=== PATIENT | male | born 1965 | race Caucasian/White ===

== ENCOUNTER 2020-02-25 11:51 | Inpatient (IN) ==
[2020-02-25] MEDS ORDERED: 0.9 % Sodium Chloride 1,000 ML IV ONE (12:11)
[2020-02-25 12:51] LABS: Basophils # 0.1 K/mcL (0.0-0.2); Basophils % 0.2 %; Hematocrit 41.9 % (37.5-50.1); Immature Granulocytes % 1.3 % (0-4); Lymphocytes % 4.2 %; Mean Corpuscular HGB Conc 33.4 g/dL (31.6-35.5); Mean Corpuscular Hemoglobin 28.9 pg (28.0-33.3); Mean Corpuscular Volume 86.4 fL (83.0-100.0); Mean Platelet Volume 9.8 fL (9.4-12.4); Monocytes # 1.1 K/mcL (0.0-1.3); Monocytes % 4.5 %; Neutrophils # 21.7 K/mcL (1.6-8.9); Platelet Count 392 K/mcL (140-400); Red Blood Count 4.85 M/mcL (4.19-5.50); Red Cell Distribution Width 13.4 % (11.5-14.5); Segmented Neutrophils % 89.8 %; White Blood Count 24.2 K/mcL (4.3-11.1)
[2020-02-25 12:52] LABS: Platelet Estimate Normal (Normal)
[2020-02-25] MEDS ORDERED: Isovue-370 500 ML BOTTLE IVP ONE ×2 (13:01→13:14)
[2020-02-25 13:10] LABS: Alanine Aminotransferase 112 Units/L (7-52); Albumin 3.3 g/dL (3.5-5.7); Albumin/Globulin Ratio 0.9 (1.1-2.2); Alkaline Phosphatase 231 Units/L (34-104); Aspartate Amino Transferase 159 Units/L (13-39); BUN/Creatinine Ratio 19 (6-26); Blood Urea Nitrogen 17 mg/dL (6-20); Calcium 8.4 mg/dL (8.6-10.3); Carbon Dioxide 30 mEq/L (23-29); Chloride 86 mEq/L (98-107); Globulin 3.8 g/dL (2.4-3.5); Glucose 152 mg/dL (70-105); Lipase 38 Units/L (11-82); Osmolality,Calculated 271 (280-300); Sodium 128 mEq/L (136-145); Total Protein 7.1 g/dL (6.4-8.9); eGFR For African Americans > 60 (> 60); eGFR For Non-African Americans > 60 (> 60)
[2020-02-25 13:27] LABS: Bilirubin,Urine Small (Negative); Blood,Urine Negative (Negative); Clarity,Urine Clear (Clear); Color,Urine Yellow (Yellow); Glucose,Urine (UA) >=1000 mg/dL (Normal); Ketones,Urine 15 mg/dL (Negative); Leukocyte Esterase,Urine Negative (Negative); Nitrite,Urine Negative (Negative); PH,Urine 6.5 pH Units (5.0-8.0); Protein,Urine Negative (Neg-Trace); Specific Gravity,Urine 1.018 (1.010-1.025); Urobilinogen,Urine Normal (Normal)
[2020-02-25] MEDS ORDERED: Metoclopramide 10 MG/2 ML VIAL IVP ONE (13:42)
[2020-02-25] MEDS ORDERED: *HR* Heparin 5,000 UNIT/ML VIAL IVP PRN (15:54)
[2020-02-25] MEDS ORDERED: *HR* Heparin 5,000 UNIT/ML VIAL IVP ONE (15:54)
[2020-02-25] MEDS ORDERED: Piperacillin/Tazobactam 3.375 GM in Water for inj. (sterile) 20 ML IVP ONE (16:04)
[2020-02-25] MEDS: Heparin 25,000 UNIT/250 ML D5W 25,000 UNIT/250 ML IV.SOLN IVC SCH (16:26)
[2020-02-25 16:55] LABS: Hematocrit 40.8 % (37.5-50.1); Hemoglobin 13.2 g/dL (12.9-16.9); Mean Corpuscular HGB Conc 32.4 g/dL (31.6-35.5); Mean Corpuscular Hemoglobin 28.4 pg (28.0-33.3); Mean Corpuscular Volume 87.9 fL (83.0-100.0); Mean Platelet Volume 9.9 fL (9.4-12.4); Platelet Count 375 K/mcL (140-400); Red Blood Count 4.64 M/mcL (4.19-5.50); Red Cell Distribution Width 13.5 % (11.5-14.5); White Blood Count 19.2 K/mcL (4.3-11.1)
[2020-02-25] MEDS ORDERED: Gadolinium Contrast Agent (WT Based) IV PRN (17:41)
[2020-02-25 17:49] LABS: Heparin anti-factor XA UFH < 0.04 IU/mL (0.30-0.70); INR 1.3
[2020-02-25 17:50] LABS: Prothrombin Time 14.5 Seconds (9.4-12.1)
[2020-02-25] MEDS ORDERED: *HR* Promethazine 25 MG/ML VIAL IVP PRN (18:30)
[2020-02-25] MEDS ORDERED: Promethazine 25 MG in 0.9 % Sodium Chloride 50 ML IVPB PRN (18:41)
[2020-02-25 20:21] LABS: Hepatitis B Core IgM Nonreactive (Nonreactive)
[2020-02-25 20:22] LABS: Hepatitis C Virus Antibody Nonreactive (Nonreactive)
[2020-02-25 20:24] LABS: Hepatitis A Antibody IgM Nonreactive (Nonreactive)
[2020-02-25] MEDS ORDERED: *HR* OxyCODONE Immed Rel 5 MG TABLET PO PRN (21:27)
[2020-02-25] MEDS: Piperacillin/Tazobactam 3.375 GM in 0.9 % Sodium Chloride Mini Bag 100 ML IVPB SCH (23:37)
[2020-02-26] MEDS: Heparin 25,000 UNIT/250 ML D5W 25,000 UNIT/250 ML IV.SOLN IVC SCH ×4 (00:43→22:28)
[2020-02-26] MEDS: *HR* Heparin 5,000 UNIT/ML VIAL IVP PRN ×2 (00:45→14:22)
[2020-02-26 01:37] LABS: Basophils % 0.2 %; Eosinophils % 0.1 %; Hematocrit 37.7 % (37.5-50.1); Hemoglobin 12.4 g/dL (12.9-16.9); Immature Granulocytes % 0.8 % (0-4); Lymphocytes % 5.4 %; Mean Corpuscular HGB Conc 32.9 g/dL (31.6-35.5); Mean Corpuscular Hemoglobin 28.9 pg (28.0-33.3); Mean Corpuscular Volume 87.9 fL (83.0-100.0); Mean Platelet Volume 10.1 fL (9.4-12.4); Monocytes % 5.5 %; Neutrophils # 15.5 K/mcL (1.6-8.9); Platelet Count 387 K/mcL (140-400); Red Blood Count 4.29 M/mcL (4.19-5.50); Red Cell Distribution Width 13.7 % (11.5-14.5); White Blood Count 17.7 K/mcL (4.3-11.1)
[2020-02-26 01:49] LABS: BUN/Creatinine Ratio 21 (6-26); Blood Urea Nitrogen 15 mg/dL (6-20); Calcium 7.5 mg/dL (8.6-10.3); Carbon Dioxide 28 mEq/L (23-29); Chloride 92 mEq/L (98-107); Glucose 100 mg/dL (70-105); Osmolality,Calculated 271 (280-300); Potassium 3.4 mEq/L (3.5-5.1); Sodium 130 mEq/L (136-145); eGFR For African Americans > 60 (> 60); eGFR For Non-African Americans > 60 (> 60)
[2020-02-26 03:07] LABS: Hepatitis B Surface Antigen Nonreactive (Nonreactive)
[2020-02-26] MEDS ORDERED: Ibuprofen 800 MG TABLET PO ONE (04:02)
[2020-02-26] MEDS ORDERED: Isovue-370 500 ML BOTTLE IVP ONE (07:19)
[2020-02-26] MEDS: polyethylene glycoL 3350 17 GM POWD.PACK PO SCH ×2 (07:41→20:09)
[2020-02-26] MEDS: Piperacillin/Tazobactam 3.375 GM in 0.9 % Sodium Chloride Mini Bag 100 ML IVPB SCH ×3 (07:41→23:34)
[2020-02-26 08:59] LABS: Basophils % 0.2 %; Hemoglobin 12.8 g/dL (12.9-16.9); Immature Granulocytes % 0.9 % (0-4); Lymphocytes # 1.1 K/mcL (0.6-4.6); Lymphocytes % 6.2 %; Mean Corpuscular HGB Conc 32.8 g/dL (31.6-35.5); Mean Corpuscular Hemoglobin 28.8 pg (28.0-33.3); Mean Corpuscular Volume 87.8 fL (83.0-100.0); Mean Platelet Volume 9.6 fL (9.4-12.4); Monocytes # 0.6 K/mcL (0.0-1.3); Monocytes % 3.4 %; Neutrophils # 15.1 K/mcL (1.6-8.9); Platelet Count 362 K/mcL (140-400); Red Blood Count 4.44 M/mcL (4.19-5.50); Red Cell Distribution Width 13.6 % (11.5-14.5); Segmented Neutrophils % 89.3 %; White Blood Count 16.9 K/mcL (4.3-11.1)
[2020-02-26 09:17] LABS: Alanine Aminotransferase 124 Units/L (7-52); Albumin 2.8 g/dL (3.5-5.7); Albumin/Globulin Ratio 0.7 (1.1-2.2); Alkaline Phosphatase 242 Units/L (34-104); Aspartate Amino Transferase 175 Units/L (13-39); BUN/Creatinine Ratio 23 (6-26); Bilirubin,Total 0.9 mg/dL (0.3-1.0); Blood Urea Nitrogen 17 mg/dL (6-20); Calcium 7.7 mg/dL (8.6-10.3); Carbon Dioxide 28 mEq/L (23-29); Chloride 93 mEq/L (98-107); Globulin 3.8 g/dL (2.4-3.5); Glucose 165 mg/dL (70-105); Osmolality,Calculated 275 (280-300); Potassium 3.6 mEq/L (3.5-5.1); Sodium 130 mEq/L (136-145); Total Protein 6.6 g/dL (6.4-8.9); eGFR For African Americans > 60 (> 60); eGFR For Non-African Americans > 60 (> 60)
[2020-02-26] MEDS ORDERED: Dextrose Gel 15 GM/37.5 ML TUBE PO PRN ×2 (11:43)
[2020-02-26] MEDS ORDERED: D5% in Water 1,000 ML IVC PRN (11:43)
[2020-02-26] MEDS ORDERED: *HR* Dextrose 50 % in Water (Syg) 50 ML SYRINGE IVP PRN (11:43)
[2020-02-26] MEDS: Insulin LISPRO 300 UNITS/3 ML VIAL SQ SCH ×4 (12:06→20:11)
[2020-02-26] MEDS ORDERED: 0.9 % Sodium Chloride 1,000 ML IVC ONE (12:35)
[2020-02-26 13:45] LABS: Estimated Average Glucose 197 mg/dl
[2020-02-26 15:12] LABS: Acinetobacter baumannii by PCR Not Detected (Not Detect); Candida albicans by PCR Not Detected (Not Detect); Candida glabrata by PCR Not Detected (Not Detect); Candida krusei by PCR Not Detected (Not Detect); Candida parapsilosis by PCR Not Detected (Not Detect); Candida tropicalis by PCR Not Detected (Not Detect); Enterobacter cloacae Cmplx PCR Not Detected (Not Detect); Enterobacteriaceae by PCR Not Detected (Not Detect); Enterococcus by PCR Not Detected (Not Detect); Escherichia coli by PCR Not Detected (Not Detect); Klebsiella oxytoca by PCR Not Detected (Not Detect); Klebsiella pneumoniae by PCR Not Detected (Not Detect); Proteus by PCR Not Detected (Not Detect); Pseudomonas aeruginosa by PCR Not Detected (Not Detect); Serratia marcescens by PCR Not Detected (Not Detect); Staphylococcus aureus by PCR Not Detected (Not Detect); Staphylococcus by PCR Not Detected (Not Detect); Streptococcus agalactiae(B)PCR Not Detected (Not Detect); Streptococcus by PCR Not Detected (Not Detect); Streptococcus pneumoniae PCR Not Detected (Not Detect); Streptococcus pyogenes (A) PCR Not Detected (Not Detect)
[2020-02-26] MEDS ORDERED: Vancomycin 1,750 MG/517.5 ML IV.SOLN IVPB SCH (16:00)
[2020-02-26] MEDS: Vancomycin 1,750 MG/517.5 ML IV.SOLN IVPB SCH (17:05)
[2020-02-26] MEDS: *HR* Promethazine 25 MG/ML VIAL IVP PRN (17:25)
[2020-02-26] MEDS: Ibuprofen 600 MG TABLET PO PRN (17:25)
[2020-02-27 03:10] LABS: Hematocrit 37.8 % (37.5-50.1); Hemoglobin 12.1 g/dL (12.9-16.9); Mean Corpuscular Hemoglobin 29.2 pg (28.0-33.3); Mean Corpuscular Volume 91.1 fL (83.0-100.0); Mean Platelet Volume 9.8 fL (9.4-12.4); Platelet Count 355 K/mcL (140-400); Red Blood Count 4.15 M/mcL (4.19-5.50); Red Cell Distribution Width 13.8 % (11.5-14.5); White Blood Count 12.9 K/mcL (4.3-11.1)
[2020-02-27 03:24] LABS: Albumin 2.8 g/dL (3.5-5.7); Albumin/Globulin Ratio 0.8 (1.1-2.2); BUN/Creatinine Ratio 19 (6-26); Bilirubin,Direct 0.3 mg/dL (0.0-0.2); Bilirubin,Indirect 0.4 mg/dL (0.0-1.0); Bilirubin,Total 0.7 mg/dL (0.3-1.0); Blood Urea Nitrogen 14 mg/dL (6-20); Calcium 7.8 mg/dL (8.6-10.3); Carbon Dioxide 31 mEq/L (23-29); Chloride 97 mEq/L (98-107); Globulin 3.4 g/dL (2.4-3.5); Glucose 153 mg/dL (70-105); Magnesium 2.5 mg/dL (1.6-2.6); Osmolality,Calculated 286 (280-300); Potassium 3.4 mEq/L (3.5-5.1); Sodium 136 mEq/L (136-145); Total Protein 6.2 g/dL (6.4-8.9); eGFR For African Americans > 60 (> 60); eGFR For Non-African Americans > 60 (> 60)
[2020-02-27] MEDS: Heparin 25,000 UNIT/250 ML D5W 25,000 UNIT/250 ML IV.SOLN IVC SCH ×3 (03:33→23:12)
[2020-02-27] MEDS: Ibuprofen 600 MG TABLET PO PRN ×2 (04:14→19:16)
[2020-02-27] MEDS: Vancomycin 1,750 MG/517.5 ML IV.SOLN IVPB SCH ×2 (04:16→16:29)
[2020-02-27] MEDS: Insulin LISPRO 300 UNITS/3 ML VIAL SQ SCH ×4 (08:51→20:40)
[2020-02-27] MEDS: Piperacillin/Tazobactam 3.375 GM in 0.9 % Sodium Chloride Mini Bag 100 ML IVPB SCH ×3 (08:52→23:13)
[2020-02-27] MEDS: polyethylene glycoL 3350 17 GM POWD.PACK PO SCH ×2 (08:53→20:38)
[2020-02-27] MEDS: *HR* Promethazine 25 MG/ML VIAL IVP PRN (11:33)
[2020-02-27] MEDS: Losartan/HCTZ 50-12.5 TABLET PO SCH (18:13)
[2020-02-28 02:28] LABS: Basophils % 0.2 %; Eosinophils % 0.2 %; Hematocrit 33.8 % (37.5-50.1); Hemoglobin 10.7 g/dL (12.9-16.9); Immature Granulocytes % 0.8 % (0-4); Lymphocytes # 1.1 K/mcL (0.6-4.6); Lymphocytes % 9.4 %; Mean Corpuscular HGB Conc 31.7 g/dL (31.6-35.5); Mean Corpuscular Hemoglobin 28.5 pg (28.0-33.3); Mean Corpuscular Volume 89.9 fL (83.0-100.0); Mean Platelet Volume 9.8 fL (9.4-12.4); Monocytes # 0.7 K/mcL (0.0-1.3); Monocytes % 5.8 %; Neutrophils # 9.9 K/mcL (1.6-8.9); Platelet Count 334 K/mcL (140-400); Red Blood Count 3.76 M/mcL (4.19-5.50); Red Cell Distribution Width 13.6 % (11.5-14.5); Segmented Neutrophils % 83.6 %; White Blood Count 11.8 K/mcL (4.3-11.1)
[2020-02-28 02:47] LABS: Alanine Aminotransferase 171 Units/L (7-52); Albumin 2.4 g/dL (3.5-5.7); Albumin/Globulin Ratio 0.7 (1.1-2.2); Alkaline Phosphatase 273 Units/L (34-104); Aspartate Amino Transferase 192 Units/L (13-39); BUN/Creatinine Ratio 12 (6-26); Bilirubin,Total 0.9 mg/dL (0.3-1.0); Blood Urea Nitrogen 9 mg/dL (6-20); C-Reactive Protein 176 mg/L (Less than 10); Calcium 7.5 mg/dL (8.6-10.3); Carbon Dioxide 29 mEq/L (23-29); Chloride 100 mEq/L (98-107); Globulin 3.5 g/dL (2.4-3.5); Glucose 194 mg/dL (70-105); Magnesium 2.4 mg/dL (1.6-2.6); Osmolality,Calculated 286 (280-300); Potassium 3.5 mEq/L (3.5-5.1); Sodium 136 mEq/L (136-145); Total Protein 5.9 g/dL (6.4-8.9); eGFR For African Americans > 60 (> 60); eGFR For Non-African Americans > 60 (> 60)
[2020-02-28] MEDS: Vancomycin 1,750 MG/517.5 ML IV.SOLN IVPB SCH ×3 (04:25→23:36)
[2020-02-28] MEDS: *HR* Heparin 5,000 UNIT/ML VIAL IVP PRN (04:26)
[2020-02-28] MEDS: Insulin LISPRO 300 UNITS/3 ML VIAL SQ SCH ×4 (08:58→20:51)
[2020-02-28] MEDS: Piperacillin/Tazobactam 3.375 GM in 0.9 % Sodium Chloride Mini Bag 100 ML IVPB SCH ×2 (08:58→16:54)
[2020-02-28] MEDS: polyethylene glycoL 3350 17 GM POWD.PACK PO SCH ×2 (08:59→19:48)
[2020-02-28] MEDS: Losartan/HCTZ 50-12.5 TABLET PO SCH (08:59)
[2020-02-28] MEDS: Heparin 25,000 UNIT/250 ML D5W 25,000 UNIT/250 ML IV.SOLN IVC SCH (09:09)
[2020-02-28] MEDS: *HR* Promethazine 25 MG/ML VIAL IVP PRN (10:23)
[2020-02-28] MEDS: Ibuprofen 600 MG TABLET PO PRN (11:46)
[2020-02-29] MEDS: Piperacillin/Tazobactam 3.375 GM in 0.9 % Sodium Chloride Mini Bag 100 ML IVPB SCH ×4 (00:54→23:44)
[2020-02-29 03:00] LABS: INR 1.3
[2020-02-29 03:15] LABS: Alanine Aminotransferase 155 Units/L (7-52); Albumin 2.5 g/dL (3.5-5.7); Albumin/Globulin Ratio 0.7 (1.1-2.2); Alkaline Phosphatase 259 Units/L (34-104); Aspartate Amino Transferase 115 Units/L (13-39); BUN/Creatinine Ratio 15 (6-26); Bilirubin,Total 0.7 mg/dL (0.3-1.0); Blood Urea Nitrogen 10 mg/dL (6-20); Calcium 7.5 mg/dL (8.6-10.3); Carbon Dioxide 26 mEq/L (23-29); Chloride 101 mEq/L (98-107); Globulin 3.5 g/dL (2.4-3.5); Glucose 167 mg/dL (70-105); Osmolality,Calculated 287 (280-300); Potassium 3.6 mEq/L (3.5-5.1); Sodium 137 mEq/L (136-145); eGFR For African Americans > 60 (> 60); eGFR For Non-African Americans > 60 (> 60)
[2020-02-29 03:36] LABS: Hematocrit 33.9 % (37.5-50.1); Mean Corpuscular HGB Conc 32.4 g/dL (31.6-35.5); Mean Corpuscular Hemoglobin 29.1 pg (28.0-33.3); Mean Corpuscular Volume 89.7 fL (83.0-100.0); Mean Platelet Volume 9.9 fL (9.4-12.4); Platelet Count 378 K/mcL (140-400); Red Blood Count 3.78 M/mcL (4.19-5.50); Red Cell Distribution Width 13.7 % (11.5-14.5)
[2020-02-29] MEDS: Ibuprofen 600 MG TABLET PO PRN (04:24)
[2020-02-29] MEDS ORDERED: *HR* FentaNYL (PF) 100 MCG/2 ML VIAL IVP ONE ×2 (08:05→11:44)
[2020-02-29] MEDS ORDERED: *HR* Midazolam HCl 2 MG/2 ML VIAL IVP ONE ×2 (08:05→11:44)
[2020-02-29] MEDS: Vancomycin 1,750 MG/517.5 ML IV.SOLN IVPB SCH ×2 (08:48→18:31)
[2020-02-29] MEDS: polyethylene glycoL 3350 17 GM POWD.PACK PO SCH ×2 (08:49→20:39)
[2020-02-29] MEDS: Insulin LISPRO 300 UNITS/3 ML VIAL SQ SCH ×4 (08:49→20:40)
[2020-02-29] MEDS: Losartan/HCTZ 50-12.5 TABLET PO SCH (08:50)
[2020-02-29] MEDS ORDERED: 0.9 % Sodium Chloride 500 ML ONE ×2 (10:31→11:55)
[2020-02-29] MEDS ORDERED: cefTRIAXone 2,000 MG in Water for inj. (sterile) 20 ML IVP SCH (15:00)
[2020-02-29] MEDS ORDERED: Vancomycin 1 EACH in 0.9 % Sodium Chloride 250 ML IVPB SCH (15:00)
[2020-02-29] MEDS ORDERED: MetroNIDAZOLE 500 MG/100 ML 500 MG/100 ML BAG IVPB SCH (16:00)
[2020-02-29] MEDS: *HR* Promethazine 25 MG/ML VIAL IVP PRN (19:54)
[2020-03-01 00:57] LABS: Basophils % 0.2 %; Eosinophils # 0.1 K/mcL (0.0-0.6); Eosinophils % 0.4 %; Hematocrit 33.3 % (37.5-50.1); Hemoglobin 11.1 g/dL (12.9-16.9); Immature Granulocytes % 0.6 % (0-4); Mean Corpuscular HGB Conc 33.3 g/dL (31.6-35.5); Mean Corpuscular Hemoglobin 29.4 pg (28.0-33.3); Mean Corpuscular Volume 88.3 fL (83.0-100.0); Mean Platelet Volume 9.4 fL (9.4-12.4); Monocytes # 0.6 K/mcL (0.0-1.3); Monocytes % 4.7 %; Neutrophils # 10.5 K/mcL (1.6-8.9); Platelet Count 397 K/mcL (140-400); Red Blood Count 3.77 M/mcL (4.19-5.50); Red Cell Distribution Width 13.6 % (11.5-14.5); Segmented Neutrophils % 86.1 %; White Blood Count 12.2 K/mcL (4.3-11.1)
[2020-03-01 01:15] LABS: Alanine Aminotransferase 119 Units/L (7-52); Albumin 2.6 g/dL (3.5-5.7); Albumin/Globulin Ratio 0.7 (1.1-2.2); Alkaline Phosphatase 237 Units/L (34-104); Aspartate Amino Transferase 53 Units/L (13-39); BUN/Creatinine Ratio 14 (6-26); Bilirubin,Total 0.8 mg/dL (0.3-1.0); Blood Urea Nitrogen 9 mg/dL (6-20); Calcium 8.1 mg/dL (8.6-10.3); Carbon Dioxide 25 mEq/L (23-29); Chloride 99 mEq/L (98-107); Globulin 3.8 g/dL (2.4-3.5); Glucose 146 mg/dL (70-105); Osmolality,Calculated 275 (280-300); Potassium 3.8 mEq/L (3.5-5.1); Sodium 132 mEq/L (136-145); Total Protein 6.4 g/dL (6.4-8.9); eGFR For African Americans > 60 (> 60); eGFR For Non-African Americans > 60 (> 60)
[2020-03-01] MEDS: Vancomycin 1,750 MG/517.5 ML IV.SOLN IVPB SCH ×2 (05:14→17:55)
[2020-03-01] MEDS: *HR* Rivaroxaban 15 MG TABLET PO SCH ×2 (07:50→16:27)
[2020-03-01] MEDS: Losartan/HCTZ 50-12.5 TABLET PO SCH (07:50)
[2020-03-01] MEDS: Insulin LISPRO 300 UNITS/3 ML VIAL SQ SCH ×4 (07:50→20:08)
[2020-03-01] MEDS: polyethylene glycoL 3350 17 GM POWD.PACK PO SCH ×2 (07:51→20:30)
[2020-03-01] MEDS: Piperacillin/Tazobactam 3.375 GM in 0.9 % Sodium Chloride Mini Bag 100 ML IVPB SCH ×3 (07:51→23:33)
[2020-03-01] MEDS: *HR* Promethazine 25 MG/ML VIAL IVP PRN (08:03)
[2020-03-01] MEDS: Empagliflozin [Jardiance] 10 MG PO SCH (12:09)
[2020-03-01] MEDS: Ibuprofen 600 MG TABLET PO PRN (20:26)
[2020-03-02 04:32] LABS: Basophils % 0.6 %; Eosinophils # 0.1 K/mcL (0.0-0.6); Hematocrit 36.3 % (37.5-50.1); Hemoglobin 11.3 g/dL (12.9-16.9); Immature Granulocytes % 0.8 % (0-4); Lymphocytes # 1.1 K/mcL (0.6-4.6); Lymphocytes % 14.9 %; Mean Corpuscular HGB Conc 31.1 g/dL (31.6-35.5); Mean Corpuscular Hemoglobin 28.5 pg (28.0-33.3); Mean Corpuscular Volume 91.4 fL (83.0-100.0); Mean Platelet Volume 9.3 fL (9.4-12.4); Monocytes # 0.5 K/mcL (0.0-1.3); Monocytes % 6.7 %; Neutrophils # 5.5 K/mcL (1.6-8.9); Platelet Count 402 K/mcL (140-400); Red Blood Count 3.97 M/mcL (4.19-5.50); Red Cell Distribution Width 13.6 % (11.5-14.5); White Blood Count 7.2 K/mcL (4.3-11.1)
[2020-03-02 04:52] LABS: Alanine Aminotransferase 88 Units/L (7-52); Albumin 2.6 g/dL (3.5-5.7); Albumin/Globulin Ratio 0.7 (1.1-2.2); Alkaline Phosphatase 213 Units/L (34-104); Aspartate Amino Transferase 32 Units/L (13-39); BUN/Creatinine Ratio 14 (6-26); Bilirubin,Total 0.6 mg/dL (0.3-1.0); Blood Urea Nitrogen 10 mg/dL (6-20); Calcium 8.5 mg/dL (8.6-10.3); Carbon Dioxide 29 mEq/L (23-29); Chloride 103 mEq/L (98-107); Glucose 184 mg/dL (70-105); Magnesium 1.9 mg/dL (1.6-2.6); Osmolality,Calculated 292 (280-300); Potassium 3.8 mEq/L (3.5-5.1); Sodium 139 mEq/L (136-145); Total Protein 6.6 g/dL (6.4-8.9); eGFR For African Americans > 60 (> 60); eGFR For Non-African Americans > 60 (> 60)
[2020-03-02] MEDS: Vancomycin 1,750 MG/517.5 ML IV.SOLN IVPB SCH (05:36)
[2020-03-02] MEDS: polyethylene glycoL 3350 17 GM POWD.PACK PO SCH (07:33)
[2020-03-02] MEDS: Empagliflozin [Jardiance] 10 MG PO SCH (07:34)
[2020-03-02] MEDS: Losartan/HCTZ 50-12.5 TABLET PO SCH (07:54)
[2020-03-02] MEDS: Piperacillin/Tazobactam 3.375 GM in 0.9 % Sodium Chloride Mini Bag 100 ML IVPB SCH ×2 (07:54→15:54)
[2020-03-02] MEDS: *HR* Rivaroxaban 15 MG TABLET PO SCH ×2 (07:54→16:56)
[2020-03-02] MEDS: Insulin LISPRO 300 UNITS/3 ML VIAL SQ SCH ×3 (07:55→16:57)
[2020-03-02 16:30] VITALS: BP 141/89
[2020-03-02] MEDS ORDERED: Aminoglycoside Consult 1 EACH MC ONE (17:01)
[2020-03-02] MEDS ORDERED: Vancomycin 2,000 MG/520 ML IV.SOLN IVPB SCH (18:00)
== END 2020-03-02 17:02 | disposition home or self-care (01) | DRG 871 ==
LOC: 2ANU 11:51 → EMEROOARM 11:51 → 2ANU 18:02 → SUATTDRO 02-27 17:53
PROVIDERS: ADMIT Internal Medicine; ATTEND Internal Medicine
PROC: IRLIVER (2020-02-29 10:30)